=== PATIENT | male | born 1980 | race Caucasian/White ===

== ENCOUNTER 2020-08-03 10:54 | Emergency (ER) | payer BC ==
--- NOTE | 2020-08-03 12:18 | XR ---
EXAMINATION TYPE: XR chest 2V DATE OF EXAM: 08/03/2020 COMPARISON: None INDICATION: Short of breath TECHNIQUE: Frontal and lateral views of the chest are obtained. FINDINGS: The heart size is normal. The pulmonary vasculature is normal. Mild subsegmental infiltrates at the lower lung valerio bilaterally. Findings are nonspecific and can be related to atelectasis or atypical pneumonia. IMPRESSION: 1. Mild subsegmental infiltrates bilateral lung bases. Correlate for atelectasis or atypical pneumoni a.
[2020-08-03] MEDS ORDERED: IBUPROFEN 600 MG TAB PO STA (12:44)
[2020-08-03] MEDS ORDERED: SODIUM CHLORIDE 0.9% 2,000 ML IV ONE (13:03)
[2020-08-03] MEDS ORDERED: DEXAMETHASONE SOD PHOSPHATE 10 MG/ML 1 ML VIAL IV STA (13:03)
--- NOTE | 2020-08-03 13:08 | ED ---
SOB HPI - General Chief Complaint: Shortness of Breath Stated Complaint: Covid +, Fever, SOB Time Seen by Provider: 08/03/20 11:35 Source: patient Mode of arrival: ambulatory Limitations: no limitations - History of Present Illness Initial Comments: Patient is a 40-year-old previously healthy male who presents emergency room with reported shortness of breath and fevers which have been ongoing since the . Patient did test positive for covid at this time. Reports that he has been taking Tylenol and Motrin at home for fever control. He took 500 mg of Tylenol and 200 mg of Motrin around 11 AM. Continue to have difficulty controlling his fevers and therefore came into the emergency room for further treatment. She did buy a pulse ox. States has been reading in the low 90s. Denies lower extremity edema. No history of DVT or PE. She has not been taking any additional medications for his symptoms. Admits to nonproductive cough. No nausea, vomiting or diarrhea. No other alleviating, precipitating or modifying factors - Related Data Home Medications Medication Instructions Recorded Confirmed Acetaminophen Tab [Tylenol Tab] 500 mg PO Q6H PRN 08/03/20 08/03/20 Previous Rx's Medication Instructions Recorded Albuterol Inhaler [Ventolin Hfa 2 puff INHALATION RT-QID #1 inhaler 08/03/20 Inhaler] Dexamethasone [Decadron] 6 mg PO DAILY #5 tablet 08/03/20 Allergies Allergy/AdvReac Type Severity Reaction Status Date / Time No Known Allergies Allergy Verified 08/03/20 13:29 Review of Systems ROS Statement: Those systems with pertinent positive or pertinent negative responses have been documented in the HPI. ROS Other: All systems not noted in ROS Statement are negative. Past Medical History Additional Past Medical History / Comment(s): Covid 08/13 History of Any Multi-Drug Resistant Organisms: None Reported Past Surgical History: Orthopedic Surgery Additional Past Surgical History / Comment(s): rt hand Past Psychological History: No Psychological Hx Reported Smoking Status: Never smoker Past Alcohol Use History: Occasional Past Drug Use History: None Reported General Exam Limitations: no limitations General appearance: alert, in no apparent distress Head exam: Present: atraumatic, normocephalic, normal inspection Eye exam: Present: normal appearance, PERRL, EOMI. Absent: scleral icterus, conjunctival injection, periorbital swelling ENT exam: Present: normal exam, mucous membranes moist Neck exam: Present: normal inspection. Absent: tenderness, meningismus, lymphadenopathy Respiratory exam: Present: normal lung sounds bilaterally. Absent: respiratory distress, wheezes, rales, rhonchi, stridor Cardiovascular Exam: Present: normal rhythm, tachycardia, normal heart sounds. Absent: systolic murmur, diastolic murmur, rubs, gallop, clicks GI/Abdominal exam: Present: soft, normal bowel sounds. Absent: distended, tenderness, guarding, rebound, rigid Extremities exam: Present: normal inspection, full ROM, normal capillary refill. Absent: tenderness, pedal edema, joint swelling, calf tenderness Back exam: Present: normal inspection Neurological exam: Present: alert, oriented X3, CN II-XII intact Psychiatric exam: Present: normal affect, normal mood Skin exam: Present: warm, dry, intact, normal color. Absent: rash Course Vital Signs 08/03/20 08/03/20 08/03/20 11:34 12:28 14:24 Temperature 102.8 F H Pulse Rate 109 H 101 H Respiratory 22 26 H 16 Rate Blood Pressure 108/76 134/84 O2 Sat by Pulse 93 L 89 L 92 L Oximetry 08/03/20 14:37 Temperature 100.6 F H Pulse Rate 99 Respiratory 20 Rate Blood Pressure 134/89 O2 Sat by Pulse 93 L Oximetry Medical Decision Making - Medical Decision Making Upon arrival patient is placed into room 27. A thorough history and physical exam was performed. IV is established the patient is given a 2 L bolus of normal saline. Chest x-ray was performed which demonstrates mild subsegmental infiltrates of the bilateral lung bases. Patient was given 10 mg of Decadron and 600 mg of Motrin. I discussed diagnosis, differential treatment options. As the patient does have episodes of hypoxia to 89% when he ambulates I did recommend treatment with dexamethasone. Hospital admission was recommended however the patient refused. Patient will likely to be discharged home at this time. I will place the patient on a 5 day course of Decadron. He is also given a prescription for an albuterol inhaler. He is to take Tylenol, thousand milligrams every 8 hours for fever control. He is to not take any NSAIDs on the steroids. The patient understood this. His pulse ox reads the mid 80s continuously the patient was return for further treatment. Patient understood this and is discharged home in stable condition Disposition Clinical Impression: COVID-19 Disposition: HOME SELF-CARE Condition: Stable Instructions (If sedation given, give patient instructions): Coronavirus Disease 2019 (COVID-19) Additional Instructions: Please check your pulse ox. Return to the ED should your pulse ox drop into the 80s and remain there. Take the steroids as directed. Take Tylenol 1000 mg every 8 hours. Use the inhaler for shortness of breath. Prescriptions: Dexamethasone [Decadron] 6 mg PO DAILY #5 tablet Albuterol Inhaler [Ventolin Hfa Inhaler] 2 puff INHALATION RT-QID #1 inhaler Is patient prescribed a controlled substance at d/c from ED?: No Referrals: None,Stated [Primary Care Provider] - 1-2 days Time of Disposition: 14:51
[2020-08-03 14:38] VITALS: BP 134/89; PULSE 99; RESP 20; TEMP 100.6
== END 2020-08-03 15:09 | disposition home or self-care (01) ==
LOC: EC 10:54
DX: U07.1 COVID-19 (principal)
CPT/HCPCS: 71046; 99284; 96374; 96361 ×2; J1100